=== PATIENT | male | born 2000 | race American Indian/Alaskan Native ===

== ENCOUNTER 2019-07-14 03:03 | Emergency (ER) | payer OTHER ==
[2019-07-14 03:08] VITALS: BP 106/62
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
== END 2019-07-14 05:57 | disposition home or self-care (01) ==
LOC: ED 03:03
DX: M25.561 Pain in right knee (principal); M25.562 Pain in left knee; F17.200 Nicotine dependence, unspecified, uncomplicated; F12.10 Cannabis abuse, uncomplicated